=== PATIENT | female | born 1955 | race Caucasian/White ===

== ENCOUNTER 2019-03-30 07:27 | Day surgery (SDC) | payer OTHER ==
[~2019-03-30] VITALS: Ht 162.6 cm; Wt 76.2 kg
[2019-03-30] MEDS ORDERED: LIDOCAINE 2% 100 MG/5 ML UJET TP ONE (08:56)
[2019-03-30] MEDS ORDERED: fentaNYL 0.05 MG/ML VIAL ONE (08:56)
[2019-03-30] MEDS ORDERED: fentaNYL 0.05 MG/ML VIAL IVP ONE (09:11)
== END 2019-03-30 10:00 | disposition home or self-care (01) ==
LOC: MDS 07:27 → MMU 07:33 → MDS 10:00
PROVIDERS: ATTEND Internal Medicine Gastroenterology
DX: Z12.11 Encounter for screening for malignant neoplasm of colon (principal); K57.30 Diverticulosis of large intestine without perforation or abscess without bleeding; I10 Essential (primary) hypertension; E66.3 Overweight; Z86.010 Personal history of colon polyps; Z85.3 Personal history of malignant neoplasm of breast; Z79.899 Other long term (current) drug therapy
CPT/HCPCS: 45378; J3010